=== PATIENT | female | born 1955 | race Caucasian/White ===

== ENCOUNTER 2022-09-18 22:02 | Emergency (ER) | payer MEDICARE, BC ==
[~2022-09-18] VITALS: Ht 165.1 cm; Wt 79.5 kg
[2022-09-18 23:13] LABS: BASOPHILS # (AUTO) 0.1 X10'3 (0-0.2); BASOPHILS % (AUTO) 1.2 % (0-1); EOSINOPHILS # (AUTO) 0.1 X10'3 (0-0.9); EOSINOPHILS % (AUTO) 2.2 % (0-6); HEMATOCRIT 41.7 % (35.0-45.0); HEMOGLOBIN 14.1 g/dl (12.0-16.0); LYMPHOCYTES # (AUTO) 1.4 X10'3 (1.1-4.8); MEAN CORPUSCULAR HEMOGLOBIN 33.5 PG (27.0-31.0); MEAN CORPUSCULAR HGB CONC 33.7 g/dL (33.0-36.5); MEAN CORPUSCULAR VOLUME 99.3 FL (78-98); MEAN PLATELET VOLUME 7.1 FL (7.4-10.4); MONOCYTES # (AUTO) 0.4 X10'3 (0-0.9); MONOCYTES % (AUTO) 7.3 % (2-12); NEUTROPHILS % (AUTO) 61.3 % (42-75); PLATELET COUNT 171 X10'3 (140-440); RED BLOOD COUNT 4.21 X10'6 (4.20-5.60); RED CELL DISTRIBUTION WIDTH 14.4 % (11.5-14.5); WHITE BLOOD COUNT 4.8 X10'3 (4.5-11.0)
[2022-09-18 23:27] LABS: ALANINE AMINOTRANSFERASE 176 U/L (12-78); ALBUMIN 3.5 G/DL (3.4-5.0); ALKALINE PHOSPHATASE 227 IU/L (46-116); ANION GAP 10 (8-16); ASPARTATE AMINO TRANSFERASE 246 U/L (10-37); BILIRUBIN,TOTAL 0.4 MG/DL (0.1-1.0); BLOOD UREA NITROGEN 21 MG/DL (7-18); BUN/CREATININE RATIO 17.8 (6.6-38.0); CALCIUM 8.9 MG/DL (8.5-10.1); CHLORIDE 104 MMOL/L (99-107); CREATININE 1.18 MG/DL (0.40-0.90); GLUCOSE 98 MG/DL (70-104); POTASSIUM 3.6 MMOL/L (3.5-5.1); SODIUM 140 MMOL/L (135-145); TOTAL CARBON DIOXIDE 25.9 MMOL/L (24-32); TOTAL PROTEIN 6.9 G/DL (6.4-8.2); eGFR 46 ML/MIN
[2022-09-18] MEDS: normal saline 1000ml 1,000 ML IV ONE (23:36)
[2022-09-19 00:50] VITALS: BP 117/80
[2022-09-19] MEDS ORDERED: iohexol 300mg/ml 100ml inj. ONE (00:52)
[2022-09-19 01:08] LABS: URINE AMPHETAMINE SCREEN NEGATIVE (Neg); URINE BARBITUATE SCREEN NEGATIVE (Neg); URINE BENZODIAZEPINES SCREEN POSITIVE (Neg); URINE CANNABINOID SCREEN NEGATIVE (Neg); URINE COCAINE SCREEN NEGATIVE (Neg); URINE METHADONE SCREEN NEGATIVE (Neg); URINE OPIATE SCREEN NEGATIVE (Neg); URINE PHENCYCLIDINE SCREEN NEGATIVE (Neg)
--- NOTE | 2022-09-19 02:10 | NUR ---
IV DC'D PT BEING DISCHARGED DRESSING APPLIED
== END 2022-09-19 02:48 | disposition home or self-care (01) ==
LOC: ER 22:03
DX: F41.9 Anxiety disorder, unspecified (principal); R19.7 Diarrhea, unspecified; I48.91 Unspecified atrial fibrillation; I10 Essential (primary) hypertension
CPT/HCPCS: 36415; 74177; 80053; 80305; 84484; 85025; 93005; 96360; 99285; J3490; J7030; Q9967

== ENCOUNTER 2024-07-18 21:28 | Inpatient (IN) | payer BC, MEDICARE ==
[~2024-07-18] VITALS: Ht 167.6 cm; Wt 86.1 kg
[~2024-07-18 21:28] MED LIST: ALBU90AE3 INH; FLUO-167 PO; FLUT16SP26 BOTHNARES; HYDR12.55 PO; OMEP20CA16 PO; POTA-366 PO; RIVA20TA PO; SOTA120T22 PO; SUMA5SPR6 NS; TRAZ-256 PO
[2024-07-18] MEDS ORDERED: haloperidol decanoate***LONG-ACTING*** 100mg/ml **IM only** inj. IM ONE (21:35)
[2024-07-18] MEDS: dicyclomine 10mg/ml 2ml ampule IM ONE (21:48)
[2024-07-18] MEDS ORDERED: iohexol 300mg/ml 100ml inj. ONE (21:49)
[2024-07-18 22:09] LABS: BASOPHILS % (AUTO) 0.8 % (0-1); EOSINOPHILS # (AUTO) 0.1 X10'3 (0-0.9); EOSINOPHILS % (AUTO) 1.5 % (0-6); HEMATOCRIT 26.2 % (35.0-45.0); HEMOGLOBIN 8.9 g/dl (12.0-16.0); LYMPHOCYTES % (AUTO) 21.1 % (21-51); MEAN CORPUSCULAR VOLUME 108.8 FL (78-98); MEAN PLATELET VOLUME 7.3 FL (7.4-10.4); MONOCYTES # (AUTO) 0.3 X10'3 (0-0.9); MONOCYTES % (AUTO) 6.7 % (2-12); NEUTROPHILS # (AUTO) 3.3 X10'3 (1.8-7.7); NEUTROPHILS % (AUTO) 69.9 % (42-75); PLATELET COUNT 109 X10'3 (140-440); RED BLOOD COUNT 2.41 X10'6 (4.20-5.60); RED CELL DISTRIBUTION WIDTH 17.3 % (11.5-14.5); WHITE BLOOD COUNT 4.7 X10'3 (4.5-11.0)
[2024-07-18] MEDS: magnesium sulf-water 2g/50mL 50 ML IV STA (22:11)
[2024-07-18] MEDS: diphenhydrAMINE 50 mg/ml inj IV ONE (22:14)
[2024-07-18] MEDS: ondansetron/PF 4mg/2ml inj IV ONE (22:14)
[2024-07-18 22:18] LABS: ALANINE AMINOTRANSFERASE 63 U/L (12-78); ALBUMIN 3.4 G/DL (3.4-5.0); ALBUMIN/GLOBULIN RATIO 1.3 (1.1-1.5); ALKALINE PHOSPHATASE 187 IU/L (46-116); ANION GAP 11 (8-16); ASPARTATE AMINO TRANSFERASE 78 U/L (10-37); BILIRUBIN,TOTAL 0.8 MG/DL (0.1-1.0); BLOOD UREA NITROGEN 10 MG/DL (7-18); BUN/CREATININE RATIO 9.4 (10.0-20.0); CALCIUM 8.3 MG/DL (8.5-10.1); CHLORIDE 102 MMOL/L (99-107); CREATININE 1.06 MG/DL (0.40-0.90); GLUCOSE 96 MG/DL (70-104); POTASSIUM 3.4 MMOL/L (3.5-5.1); SODIUM 137 MMOL/L (135-145); TOTAL CARBON DIOXIDE 23.9 MMOL/L (24-32); TOTAL PROTEIN 6.1 G/DL (6.4-8.2); eCRCL 49 ML/MIN; eGFR 52 ML/MIN
[2024-07-18] MEDS: haloperidol lactate 5mg/ml inj IM ONE (22:19)
[2024-07-18 22:21] LABS: LIPASE 339 U/L (16-77)
[2024-07-18 22:27] LABS: ETHANOL 357 MG/DL (<10)
[2024-07-18 22:53] LABS: ANISOCYTOSIS 1+; ELLIPTOCYTES FEW; PLATELET ESTIMATE DECREASED; SCHISTOCYTES FEW
[2024-07-19] VITALS (8 sets, daily range): BP systolic 102–129; BP diastolic 61–93; PULSE 60–109; RESP 15–18; TEMP 96.7–98.6; O2SAT 95–99
[2024-07-19] MEDS ORDERED: magnesium Cl slow-release 64mg tablet PO PRN (03:10)
[2024-07-19] MEDS ORDERED: HYDROmorphone inj. 0.5 MG/0.5 ML DISP.SYRIN IV PRN (03:10)
[2024-07-19] MEDS ORDERED: magnesium hydroxide 30ml (MOM) UD suspension PO PRN (03:10)
[2024-07-19] MEDS ORDERED: haloperidol 5mg tablet PO PRN (03:10)
[2024-07-19] MEDS ORDERED: acetaminophen 325mg tablet PO PRN (03:10)
[2024-07-19] MEDS ORDERED: potassium Cl 40MEQ/1/2NS 520ml 520 ML IV PRN (03:10)
[2024-07-19] MEDS ORDERED: potassium Cl 20 mEq SR tablet PO PRN (03:10)
[2024-07-19] MEDS ORDERED: haloperidol lactate 5mg/ml inj IM PRN (03:10)
[2024-07-19] MEDS ORDERED: cloNIDine 0.1 mg tablet PO PRN (03:10)
[2024-07-19] MEDS ORDERED: dicyclomine 10 MG capsule PO PRN (03:10)
[2024-07-19] MEDS ORDERED: morphine 2 MG/ML inj. syringe IV PRN ×2 (03:10)
[2024-07-19] MEDS ORDERED: magnesium sulf-water 2g/50mL 50 ML IV PRN (03:10)
[2024-07-19] MEDS ORDERED: magnesium sulf-water 4G/100mL 100 ML IV PRN (03:10)
[2024-07-19] MEDS ORDERED: mag hydrox/Alum hydrox/simeth 30ml oral suspension PO PRN (03:10)
[2024-07-19] MEDS ORDERED: HYDROmorphone/PF 0.2 MG/ML SYRINGE IV PRN (03:10)
[2024-07-19] MEDS ORDERED: SUMAtriptan 5 mg Nasal Spray NS PRN (03:35)
[2024-07-19] MEDS ORDERED: albuterol 2.5 MG/3 ML nebule NEB PRN (03:35)
[2024-07-19 03:39] LABS: BILIRUBIN,URINE NEGATIVE (Neg); CLARITY,URINE CLEAR (Clear); COLOR,URINE YELLOW (Yellow); GLUCOSE, URINE NEGATIVE (Neg); KETONES,URINE NEGATIVE (Neg); LEUKOCYTE ESTERASE ,URINE NEGATIVE (Neg); NITRITES, URINE NEGATIVE (Neg); OCCULT BLOOD,URINE SMALL (Neg); PROTEIN,URINE NEGATIVE (Neg); UROBILINOGEN,URINE 0.2 E.U/dL (0.2-1.0)
[2024-07-19 03:46] LABS: UA COLLECTION TYPE CLN CATCH MIDSTREAM
[2024-07-19 03:50] LABS: BACTERIA,URINE FEW /HPF (Neg); RBC,URINE 0-2 /HPF (0-2); SQUAMOUS EPITHELIAL CELL,UR FEW /LPF (FEW)
[2024-07-19 03:52] LABS: HEMOGLOBIN A1C 4.9 % (4.5-6.2)
[2024-07-19 03:52] LABS: URINE AMPHETAMINE SCREEN NEGATIVE (Neg); URINE BARBITUATE SCREEN NEGATIVE (Neg); URINE BENZODIAZEPINES SCREEN NEGATIVE (Neg); URINE CANNABINOID SCREEN POSITIVE (Neg); URINE COCAINE SCREEN NEGATIVE (Neg); URINE METHADONE SCREEN NEGATIVE (Neg); URINE OPIATE SCREEN NEGATIVE (Neg); URINE PHENCYCLIDINE SCREEN NEGATIVE (Neg)
[2024-07-19] MEDS: normal saline 1000ml 1,000 ML IV SCH (04:07)
[2024-07-19] MEDS: ringers solution, lacted 1,000 ML IV ONE (04:08)
[2024-07-19] MEDS: LORazepam 2 mg/ml vial IV PRN (04:08)
[2024-07-19] MEDS: pantoprazole 40 MG vial IV SCH (05:45)
[2024-07-19 06:27] LABS: MAGNESIUM 1.6 MG/DL (1.5-2.4); POTASSIUM 3.3 MMOL/L (3.5-5.1)
[2024-07-19] MEDS ORDERED: rivaroxaban 20mg tablet PO SCH (08:00)
[2024-07-19] MEDS ORDERED: heparin, porcine 5000 units/ml vial SQ SCH (08:00)
[2024-07-19] MEDS: K and/or MAG REPLACEMENT MC SCH (08:00)
[2024-07-19] MEDS: pantoprazole 40mg Tablet.DR PO SCH (08:23)
[2024-07-19] MEDS: folic acid 1mg/0.2ml inj IV SCH (08:23)
[2024-07-19] MEDS: thiamine 100mg/ml 2ml inj. IV SCH (08:23)
[2024-07-19] MEDS: potassium Cl 20 mEq SR tablet PO SCH (08:24)
[2024-07-19] MEDS: HYDROchlorothiazide 12.5mg capsule PO SCH (08:24)
[2024-07-19] MEDS: docusate sod 100mg capsule PO SCH (08:24)
[2024-07-19] MEDS: sotalol HCl 40mg (1/2 tablet) PO SCH (08:24)
[2024-07-19] MEDS: FLUoxetine 20mg capsule PO SCH (08:25)
[2024-07-19] MEDS: potassium Cl 20 mEq SR tablet PO PRN (14:22)
[2024-07-19] MEDS: ondansetron/PF 4mg/2ml inj IV PRN (19:04)
[2024-07-19] MEDS: traZODone 50mg tablet PO SCH (20:55)
[2024-07-19] MEDS ORDERED: DEXTROSE 15 GM of carb/4 tabs (each vial/BOTTLE has 4 tablets) PO PRN ×2 (22:30)
[2024-07-19] MEDS ORDERED: dextrose 50%-water 50ml dispensing syringe IV PRN (22:30)
[2024-07-19] MEDS ORDERED: glucagon, human recombinant 1mg kit SUBCUT PRN (22:30)
[2024-07-19] MEDS: dextrose 50%-water 50ml dispensing syringe IV PRN (23:14)
[2024-07-20] MEDS: dextrose 5%-1/2 normal saline 1,000 ML IV SCH (05:25)
[2024-07-20 06:00] VITALS: BP 107/78; PULSE 106; RESP 18; TEMP 98.6; O2SAT 98
[2024-07-20 06:00] LABS: HEMOGLOBIN 8.2 g/dl (12.0-16.0); MONOCYTES # (AUTO) 0.1 X10'3 (0-0.9); NEUTROPHILS % (AUTO) 74.5 % (42-75); PLATELET COUNT 71 X10'3 (140-440); RED BLOOD COUNT 2.21 X10'6 (4.20-5.60); WHITE BLOOD COUNT 2.5 X10'3 (4.5-11.0)
[2024-07-20 06:02] LABS: BASOPHILS % (AUTO) 0.9 % (0-1); HEMATOCRIT 24.4 % (35.0-45.0); INR 1.2 INR; LYMPHOCYTES # (AUTO) 0.5 X10'3 (1.1-4.8); LYMPHOCYTES % (AUTO) 18.2 % (21-51); MEAN CORPUSCULAR HEMOGLOBIN 37.1 PG (27.0-31.0); MEAN CORPUSCULAR HGB CONC 33.5 g/dL (33.0-36.5); MEAN CORPUSCULAR VOLUME 110.7 FL (78-98); MONOCYTES % (AUTO) 4.4 % (2-12); NEUTROPHILS # (AUTO) 1.9 X10'3 (1.8-7.7); PROTHROMBIN TIME 12.2 SECONDS (9.0-12.0); RED CELL DISTRIBUTION WIDTH 16.7 % (11.5-14.5)
[2024-07-20 06:07] LABS: ALANINE AMINOTRANSFERASE 44 U/L (12-78); ALBUMIN 2.8 G/DL (3.4-5.0); ALBUMIN/GLOBULIN RATIO 1.2 (1.1-1.5); ALKALINE PHOSPHATASE 162 IU/L (46-116); AMYLASE 61 U/L (25-115); ANION GAP 5 (8-16); ASPARTATE AMINO TRANSFERASE 49 U/L (10-37); BILIRUBIN,TOTAL 1.8 MG/DL (0.1-1.0); BLOOD UREA NITROGEN 9 MG/DL (7-18); BUN/CREATININE RATIO 9.4 (10.0-20.0); CALCIUM 8.3 MG/DL (8.5-10.1); CHLORIDE 110 MMOL/L (99-107); CHOL/HDL RATIO 1.3 (0.00-4.99); CHOLESTEROL 194 MG/DL (0-200); CREATININE 0.96 MG/DL (0.40-0.90); GLUCOSE 109 MG/DL (70-104); HDL CHOLESTEROL 144 MG/DL (35-60); LDL CHOLESTEROL 40 MG/DL (50-100); LIPASE 295 U/L (16-77); MAGNESIUM 1.5 MG/DL (1.5-2.4); PHOSPHORUS 2.8 MG/DL (2.3-4.5); SODIUM 141 MMOL/L (135-145); TOTAL CARBON DIOXIDE 26.1 MMOL/L (24-32); TOTAL PROTEIN 5.2 G/DL (6.4-8.2); TRIGLYCERIDES 69 MG/DL (20-135); eCRCL 54 ML/MIN; eGFR 58 ML/MIN
[2024-07-20 07:30] VITALS: RESP 16
[2024-07-20] MEDS: pantoprazole 40 MG vial IV SCH (07:52)
[2024-07-20 10:00] VITALS: BP 120/76; PULSE 94; RESP 18; TEMP 98; O2SAT 100
[2024-07-20] MEDS ORDERED: ondansetron 4mg rapidly disintigrating tab PO PRN (16:05)
[2024-07-21] MEDS ORDERED: LORazepam 2 mg/ml vial IV PRN (03:10)
[2024-07-21] MEDS ORDERED: LORazepam 1 MG tablet PO PRN (03:10)
[2024-07-23] MEDS ORDERED: LORazepam 1 MG tablet PO PRN (03:10)
[2024-07-23] MEDS ORDERED: LORazepam 2 mg/ml vial IV PRN (03:10)
== END 2024-07-20 17:41 | disposition left against medical advice (07) | DRG 440 ==
LOC: ER 21:29 → ED HOLD 07-19 01:30 → SUR 3N 07-19 03:20
PROVIDERS: ADMIT Internal Medicine Critical Care Medicine; ATTEND Nurse Practitioner Family
PROC: BW211ZZ Computerized Tomography (CT Scan) of Abdomen and Pelvis using Low Osmolar Contrast (ICD-10-PCS; principal; 2024-07-18)
DX: K85.20 Alcohol induced acute pancreatitis without necrosis or infection (principal); I48.91 Unspecified atrial fibrillation; I10 Essential (primary) hypertension; Y90.8 Blood alcohol level of 240 mg/100 ml or more; D69.6 Thrombocytopenia, unspecified; F41.9 Anxiety disorder, unspecified; Z53.29 Procedure and treatment not carried out because of patient's decision for other reasons; F10.229 Alcohol dependence with intoxication, unspecified; K76.0 Fatty (change of) liver, not elsewhere classified; M54.30 Sciatica, unspecified side; K21.9 Gastro-esophageal reflux disease without esophagitis; F43.10 Post-traumatic stress disorder, unspecified; F32.A Depression, unspecified; K76.9 Liver disease, unspecified; D53.9 Nutritional anemia, unspecified; Z88.0 Allergy status to penicillin; Z88.2 Allergy status to sulfonamides; Z88.8 Allergy status to other drugs, medicaments and biological substances
CPT/HCPCS: 36415; 70450; 74177; 80053; 80061; 80305; 80320; 81001; 82150; 82948; 83036; 83690; 83735; 84100; 84132; 84484; 85008; 85025; 85610; 87081; 93005; 96372; 96374; 96375; 97116; 97161; 97530; 97535; 99285; A6212; A6223; G0378; J0500; J1200; J1630; J2060; J2405; J2470; J3411; J3490; J7030; J7120; Q9967